=== PATIENT | male | born 1990 | race Caucasian/White ===

== ENCOUNTER 2017-03-03 11:39 | Emergency (ER) | payer OTHER ==
[2017-03-03] MEDS ORDERED: OXYCODONE-ACETAMINOPHEN 5-325 MG TABLET PO ONE (12:14)
[2017-03-03] MEDS ORDERED: CEFTRIAXONE INJ 1000 MG VIAL IM ONE (12:14)
[2017-03-03] MEDS ORDERED: LIDOCAINE 1% INJ-PF (10 MG/ML) 30 ML SDV INJ ONE (12:14)
--- NOTE | 2017-03-03 12:43 | RADIOLOGY REPORT (SQ) ---
EXAM DESCRIPTION: FINGER LEFT COMPLETED DATE/TIME: 03/03/2017 12:33 pm REASON FOR STUDY: nail through finger, limited rom COMPARISON: None. NUMBER OF VIEWS: Three views. TECHNIQUE: AP, lateral, and oblique images acquired of the left second finger. LIMITATIONS: None. FINDINGS: MINERALIZATION: Normal. BONES: No acute fracture or dislocation. No worrisome bone lesions. SOFT TISSUES: There is soft tissue swelling in the 2nd digit. OTHER: No other significant finding. IMPRESSION: Soft tissue swelling. No fracture is seen. COMMENT: SITE OF TRAUMA/COMPLAINT MARKED/STAMP COMPLETED: No TECHNICAL DOCUMENTATION: JOB ID: [id number] [employer]- All Rights Reserved
--- NOTE | 2017-03-03 12:50 | ER Document Report ---
ED Hand/Wrist Injury - General Mode of Arrival: Ambulatory Information source: Patient TRAVEL OUTSIDE OF THE [place] IN LAST 30 DAYS: No - General Chief Complaint: Finger Injury Stated Complaint: FINGER PAIN Time Seen by Provider: 03/03/17 12:06 Notes: Patient is a 26-year-old male who presents to the ER today after accidentally shooting himself in the left 2nd finger with a nail gun while working on the house this morning with it. Patient admits to limited range of motion and pain to the finger. He states his last tetanus was within the last 5 years he has sure of. He admits to some numbness to the distal finger. ([place]) Past Medical History - General Information source: Patient - Social History Smoking Status: Never Smoker Chew tobacco use (# tins/day): No Frequency of alcohol use: None Drug Abuse: None Family History: Reviewed & Not Pertinent - Immunizations Immunizations up to date: Yes Hx Diphtheria, Pertussis, Tetanus Vaccination: Yes Review of Systems - Review of Systems Constitutional: No symptoms reported EENT: No symptoms reported Cardiovascular: No symptoms reported Respiratory: No symptoms reported Gastrointestinal: No symptoms reported Genitourinary: No symptoms reported Male Genitourinary: No symptoms reported Musculoskeletal: See HPI Skin: See HPI Hematologic/Lymphatic: No symptoms reported Neurological/Psychological: No symptoms reported Physical Exam - Vital signs Vitals: Temp Pulse Resp BP Pulse Ox 98.4 F 79 16 124/70 99 03/03/17 11:57 03/03/17 11:57 03/03/17 11:57 03/03/17 11:57 03/03/17 11:57 - Notes Notes: PHYSICAL EXAMINATION: GENERAL: Well-appearing and in no acute distress. HEAD: Atraumatic, normocephalic. EYES: Pupils equal round and reactive to light, extraocular movements intact, sclera anicteric, conjunctiva are normal. NECK: Normal range of motion, supple without lymphadenopathy LUNGS: CTAB and equal. No wheezes rales or rhonchi. HEART: Regular rate and rhythm without murmurs EXTREMITIES: limited range of motion of the left 2nd digit at the PIP joint, tender to palpation, no pitting edema. No cyanosis. NEUROLOGICAL: Cranial nerves grossly intact. Normal sensory/motor exams. PSYCH: Normal mood, normal affect. SKIN: Warm, Dry, normal turgor, edema and two puncture wounds noted to medial and lateral left 2nd digit just below PIP joint, no bleeding ([place]) Course - Re-evaluation Re-evalutation: 03/03/17 12:58 X-ray of the finger is negative for any fracture. Patient has limited range of motion, he will be placed in a finger splint here and sent to orthopedics for follow-up. I have started him on Augmentin. He received Rocephin injection here in the emergency department. He was up-to-date on his tetanus. ([place]) - Vital Signs Vital signs: Temp Pulse Resp BP Pulse Ox 98.4 F 79 16 124/70 99 03/03/17 11:57 03/03/17 11:57 03/03/17 11:57 03/03/17 11:57 03/03/17 11:57 Discharge - Discharge Clinical Impression: Injury of finger by nail gun Qualifiers: Encounter type: initial encounter Laterality: left Qualified Code(s): S69.92XA - Unspecified injury of left wrist, hand and finger(s), initial encounter Condition: Stable Disposition: HOME, SELF-CARE Additional Instructions: Return immediately for any new or worsening symptoms. Follow up with orthopedics r, call tomorrow to make followup appointment. Prescriptions: Amox Tr/Potassium Clavulanate [Augmentin 875-125 Tablet] 1 tab PO BID 10 Days tablet Cephalexin Monohydrate [Keflex 500 mg Capsule] 500 mg PO Q6H 10 Days capsule Oxycodone HCl/Acetaminophen [Percocet 5-325 mg Tablet] 1 - 2 tab PO Q4H PRN #15 tablet PRN Reason: Referrals: SHELLI MCMULLEN DO [ACTIVE STAFF] - Follow up as needed
[2017-03-03 13:16] VITALS: BP 128/63
== END 2017-03-03 13:16 | disposition home or self-care (01) ==
LOC: ER 11:39
DX: S61.231A Puncture wound without foreign body of left index finger without damage to nail, initial encounter (principal); W29.4XXA Contact with nail gun, initial encounter; Y92.009 Unspecified place in unspecified non-institutional (private) residence as the place of occurrence of the external cause; R20.0 Anesthesia of skin
CPT/HCPCS: 99283; 96372; 73140; J3490; J0696

== ENCOUNTER 2017-06-29 22:59 | Emergency (ER) | payer OTHER ==
[2017-06-29 23:37] VITALS: BP 131/68
[2017-06-30] MEDS ORDERED: DEXAMETHASONE SOD PHOS INJ 10 MG/1 ML VIAL IM ONE (00:59)
[2017-06-30] MEDS ORDERED: HYDROCODONE BIT/HOMATROPINE SYRUP 5 ML UDCUP PO PRN (00:59)
--- NOTE | 2017-06-30 01:06 | ER Document Report ---
ED ENT - General Chief Complaint: Sore Throat Stated Complaint: THROAT PAIN Time Seen by Provider: 06/30/17 00:53 Mode of Arrival: Ambulatory Information source: Patient TRAVEL OUTSIDE OF THE [place] IN LAST 30 DAYS: No - HPI Patient complains to provider of: Throat problem Onset: Last week Onset/Duration: Gradual Severity: Moderate Notes: Patient arrives with complaints of sore throat. The patient has had a sore throat for about 5 days now. He has had some intermittent fevers with it as well as a cough. Seem to be doing fairly well with [id number] medications until tonight when his pain in his throat seemed to get worse. He states that is now radiating into his ears. He denies any difficulty breathing or swallowing. He denies any nausea, vomiting, diarrhea. No rash. No neck stiffness. No severe headache. No unilateral numbness, tingling, weakness. No chest pain or shortness of breath. No other complaints at this time. Past Medical History - Social History Smoking Status: Never Smoker Family History: Reviewed & Not Pertinent Patient has suicidal ideation: No Patient has homicidal ideation: No Renal/ Medical History: Denies: Hx Peritoneal Dialysis - Immunizations Immunizations up to date: Yes Hx Diphtheria, Pertussis, Tetanus Vaccination: Yes Review of Systems - Review of Systems -: Yes All other systems reviewed and negative Physical Exam - Vital signs Vitals: Temp Pulse BP Pulse Ox 98.3 F 80 131/68 H 99 06/29/17 23:35 06/29/17 23:35 06/29/17 23:35 06/29/17 23:35 - Notes Notes: GENERAL: alert, cooperative, nontoxic, no distress. HEAD: normocephalic, atraumatic EYES: conjunctiva pink without discharge, no external redness or swelling. EARS: no external swelling, no external redness, no mastoid redness, swelling, tenderness. Ear canals are clear without swelling or drainage. TMs pearly skelton , no redness, no bulging, normal landmarks, no perforation. NOSE: atraumatic, no external swelling. clear rhinorrhea noted. MOUTH/THROAT: mucous membranes moist and pink, posterior pharynx without exudate. Posterior pharynx is slightly erythematous with bilateral swollen tonsils. Uvula is midline. No peritonsillar abscess. No trismus or drooling. NECK: soft, supple, full range of motion, no meningismus. CHEST: no distress, lungs clear and equal throughout. No wheezing, rales, rhonchi. CARDIAC: regular rate and rhythm, no murmur, normal capillary refill, normal pulses. No peripheral edema noted. BACK: full range of motion, no CVA tenderness. EXTREMITIES: full range of motion of all extremities. No redness, no swelling. NEURO: alert and oriented A&O3, no focal deficits, full range of motion of all extremities. PYSCH: appropriate mood, affect. Patient is cooperative. SKIN: pink, warm, dry, no rash. Course - Re-evaluation Re-evalutation: 06/30/17 01:02 Patient is nontoxic appearing with stable vitals. Patient's had a sore throat with cough and fever for approximately 5 days. The sore throat seemed to get worse today. On exam he appears uncomfortable but is maintaining his airway. He got generalized erythema to the posterior pharynx without unilateral swelling or signs of peritonsillar abscess. No signs of epiglottitis. There is no stridor. In no distress. Remainder of his exam is unremarkable. His rapid strep is negative at this time. The patient will be given a dose of Decadron and Hycodan here in the emergency department for comfort. He will be discharged home with instructions to continue taking Tylenol or Motrin as needed. Follow-up if not improved in the next 3-5 days, sooner for increasing pain, high fever, persistent vomiting, difficulty breathing or swallowing, or for any further concerns. The patient is noted to have elevated blood pressure during today's emergency department visit. The patient was informed of this finding. The patient was instructed that this may be related to pre-hypertension and requires further evaluation with a primary care provider. The patient has no hypertensive symptoms at this time. The patient's emergency department workup and current diagnosis were explained to the patient and or family. Follow-up instructions were provided. Medications if prescribed were discussed. Instructions for when to return to the emergency department including specific worrisome symptoms were discussed with the patient and/or family. - Vital Signs Vital signs: Temp Pulse Resp BP Pulse Ox 98.3 F 80 131/68 H 99 06/29/17 23:35 06/29/17 23:35 06/29/17 23:35 06/29/17 23:35 Discharge - Discharge Clinical Impression: Pharyngitis Qualifiers: Pharyngitis/tonsillitis etiology: unspecified etiology Qualified Code(s): J02.9 - Acute pharyngitis, unspecified Condition: Stable Disposition: HOME, SELF-CARE Instructions: Sore Throat ([facility]) Additional Instructions: Continue taking Tylenol or Motrin as needed for pain. Drink lots of fluids. Follow-up if not better in 3-5 days, sooner for increasing pain, fever, difficulty breathing or swallowing, persistent vomiting, or any further concerns. Your blood pressure was elevated during today's visit. Have this rechecked with your doctor. The medication you were prescribed today may cause drowsiness. Do not drive or operate heavy machinery while taking this medication. Prescriptions: Hydrocodone Bit/Homatropine [Hycodan Syrup 5-1.5 mg/5 ml Ud Cup] 5 ml PO Q4HP PRN #60 ml PRN Reason: Forms: Elevated Blood Pressure, Smoking Cessation Education Referrals: [facility] [Provider Group] - Follow up as needed
[2017-06-30] MEDS ORDERED: HYDROCODONE/ACETAMINOPHEN 5-325 MG TABLET PO ONE (01:17)
== END 2017-06-30 01:23 | disposition home or self-care (01) ==
LOC: ER 22:59
DX: J02.9 Acute pharyngitis, unspecified (principal); R50.9 Fever, unspecified; R05 Cough
CPT/HCPCS: 99283; 96372; 87070; 87880; J1100